=== PATIENT | female | born 1975 | race Caucasian/White ===

== ENCOUNTER 2019-03-18 23:44 | Emergency (ER) | payer SELFPAY ==
[~2019-03-18] VITALS: Ht 162.6 cm; Wt 72.7 kg
[2019-03-18 23:47] VITALS: BP 157/93
== END 2019-03-19 01:30 | disposition left against medical advice (07) ==
LOC: EMS 23:44
DX: R07.81 Pleurodynia (principal); Z53.21 Procedure and treatment not carried out due to patient leaving prior to being seen by health care provider